=== PATIENT | female | born 1935 | race Caucasian/White ===

== ENCOUNTER → 2021-03-24 | Emergency (ER) | payer OTHER ==
[~2021-03-24] VITALS: Ht 149.9 cm; Wt 40.8 kg
[~2021-03-24] MED LIST: ACID REDUCER20 M1; CHILDREN'S ASPI81 MG; ISORDIL TITRADOS5 MG; LEVOTHYROXINE25 MCG; LOSARTAN-HCTZ1 EAC2; NORVASC2.5 M1; PENTOXIFYLLINE400 MG
== END | disposition home or self-care (01) ==
LOC: ER 16:31
DX: R51.9 Headache, unspecified (principal)